=== PATIENT | male | born 1960 | race Caucasian/White ===

== ENCOUNTER 2018-06-25 03:24 | Emergency (ER) | payer OTHER ==
[2018-06-25 04:02] VITALS: TEMP 98.6; BMI 32.9
[2018-06-25] MEDS ORDERED: ONDANSETRON 4 MG/2 ML VIAL IVPUSH ONE (04:52)
[2018-06-25] MEDS ORDERED: MAGNESIUM SULF 50% (8.12 MEQ/2 ML-1 GM VIAL) IVPB ONE (05:04)
--- NOTE | 2018-06-25 05:04 | PDOC ---
Attending Attestation - Resident Resident Name: Bert Prescott - ED Attending Attestation I have performed the following: I have examined & evaluated the patient, The case was reviewed & discussed with the resident, I agree w/resident's findings & plan - HPI HPI: 06/25/18 05:03 Pt comes with diffuse abd pain and vomiting and he wants alcohol detox. 06/25/18 05:11 Pt states that he has been drinking x 17 years, - Physicial Exam PE: 06/25/18 05:03 Agree with physical exam 06/25/18 05:10 No flank pain; chest sounds clear. Abd diffuse tenderness and gassiness and rebound, but no guarding. - Medical Decision Making 06/25/18 05:04 Pt will have labs and saline and pepcid and ofirmev for pain. 06/25/18 06:00 Referring Physician: YAIMA BIGGS Patient Name: LATRICIA STOREY THIS IS A PRELIMINARY REPORT FROM [facility] [employer] [facility] DATE OF SERVICE: 2018-06-25 05:18:19 IMAGES: [id number] EXAM: ABDOMEN \T\ PELVIS CT W/O CONTR HISTORY: Abdominal pain COMPARISON: None. FINDINGS: Lung bases are clear. The visualized cardiac chambers are normal size and configuration. Normal unenhanced liver, gallbladder, pancreas, spleen, adrenal glands and kidneys. The stomach and abdominal small and large bowel are normal. There is no aortic aneurysm. There is no significant retroperitoneal lymphadenopathy. There is distal liquid stool and sigmoid diverticulosis without colonic wall thickening or diverticulitis. A diarrheal illness is considered.. The appendix is normal. The urinary bladder is normal. The prostate gland is mildly enlarged l. No pelvic free fluid is identified. There is no significant pelvic lymphadenopathy. IMPRESSION: Possible diarrheal illness without colonic wall thickening. Mild prostate enlargement 06/25/18 06:03 Pt has normal labs and he will be sent for alcohol detox.
[2018-06-25] MEDS ORDERED: FAMOTIDINE 20 MG/50 ML IVPB 20 MG/50 ML MG IVPB ONE ×2 (05:06→05:18)
[2018-06-25] MEDS ORDERED: ACETAMINOPHEN 1000 MG/100 ML VIAL (NON FORMULARY) IVPB ONE (05:06)
[2018-06-25] MEDS ORDERED: ONDANSETRON 4 MG/2 ML VIAL ONE (05:08)
[2018-06-25] MEDS ORDERED: ACETAMINOPHEN INJECTION 100 ML IVPB ONE (05:08)
[2018-06-25] MEDS ORDERED: MAGNESIUM 1GM/D5W - 2 GM/200 ML IVPB IVPB ONE (05:09)
[2018-06-25 05:26] LABS: BASO % 0.9 % (0-2.0); EOS % 0.5 % (0-4.5); HEMATOCRIT 46.5 % (35.4-49); HEMOGLOBIN 16.8 GM/dL (11.7-16.9); LYMPH % 22.6 % (8-40); MCH 35.7 pg (25.7-33.7); MCHC 36.1 g/dl (32.0-35.9); MEAN CELL VOLUME 99.1 fl (80-96); MONO % 7.4 % (3.8-10.2); NEUT % 68.6 % (42.8-82.8); PLATELET COUNT 215 K/MM3 (134-434); RBC 4.69 M/mm3 (4.00-5.60); WHITE BLOOD COUNT 5.3 K/mm3 (4.0-10.0)
--- NOTE | 2018-06-25 05:38 | PDOC ---
History of Present Illness - General Chief Complaint: Alcohol intoxication Stated Complaint: INTOX Time Seen by Provider: 06/25/18 04:21 History Source: Patient Exam Limitations: No Limitations - History of Present Illness Initial Comments: 06/25/18 05:11 57 yo male pmh of HTN, DM and hx of ETOH abuse presents to the ED for diffuse abdominal pain and states he drank to much. Pt states he has been drinking since 17 yo and drinks daily however, his mother in law this past Mon and has been drinking excessively. Admits to drinking 2L of rum per day since Mon, 4 episodes of NB/NB vomiting today, loose stools and diffuse abdominal pain made worse with eating and movement. Denies F/C, back pain, CP, SOB Past History - Past Medical History Allergies/Adverse Reactions: Allergies Allergy/AdvReac Type Severity Reaction Status Date / Time No Known Allergies Allergy Verified 06/25/18 04:02 Home Medications: Ambulatory Orders Citalopram Hydrobromide [Celexa] 20 mg PO DAILY #0 tablet 08/08/11 Asthma: No Cardiac Disorders: No COPD: No Diabetes: Yes GI Disorders: No Disorders: No HTN: Yes (Not on meds) Hypercholesterolemia: Yes Kidney Stones: No Seizures: No - Surgical History Abdominal Surgery: No Appendectomy: No Cardiac Surgery: No Cholecystectomy: No Lung Surgery: No Neurologic Surgery: No Orthopedic Surgery: No - Reproductive History Testicular Surgery: No - Immunization History Td Vaccination: (UNKNOWN) - Suicide/Smoking/Psychosocial Hx Smoking Status: Yes Smoking History: Never smoked Have you smoked in the past 12 months: No Number of Cigarettes Smoked Daily: 10 Information on smoking cessation initiated: No Hx Alcohol Use: No Drug/Substance Use Hx: No Substance Use Type: Alcohol Hx Substance Use Treatment: Yes Review of Systems - Review of Systems Constitutional: No: Chills, Fever HEENTM: No: Double Vision Respiratory: No: Shortness of Breath Cardiac (ROS): No: Chest Pain ABD/GI: Yes: Diarrhea, Nausea, Vomiting, Other (diffuse abdominal pain). No: Constipated, Rectal Bleeding : No: Burning, Dysuria Neurological: No: Headache, Numbness, Paresthesia *Physical Exam - Vital Signs Last Vital Signs Temp Pulse Resp BP Pulse Ox 98.6 F 98 H 16 157/88 100 06/25/18 03:56 06/25/18 03:56 06/25/18 03:56 06/25/18 03:56 06/25/18 03:56 - Physical Exam General Appearance: Yes: Nourished, Appropriately Dressed. No: Apparent Distress HEENT: positive: EOMI, COLEEN Respiratory/Chest: positive: Lungs Clear, Normal Breath Sounds. negative: Accessory Muscle Use, Crackles, Wheezing Cardiovascular: positive: Regular Rhythm, Regular Rate, S1, S2. negative: Edema , JVD, Murmur Vascular Pulses: Dorsalis-Pedis (R): 4+, Doralis-Pedis (L): 4+ Gastrointestinal/Abdominal: positive: Normal Bowel Sounds, Flat, Soft Rectal Exam: positive: heme negative stool, normal exam, normal rectal tone Musculoskeletal: positive: Normal Inspection Extremity: positive: Normal Capillary Refill, Normal Inspection Integumentary: positive: Normal Color, Dry, Warm Neurologic: positive: Fully Oriented, Alert, Normal Mood/Affect, Normal Response , Motor Strength 5/5 Moderate Sedation - Procedure Monitoring Vital Signs: Procedure Monitoring Vital Signs Temperature 98.6 F 06/25/18 03:56 Pulse Rate 98 H 06/25/18 03:56 Respiratory Rate 16 06/25/18 03:56 Blood Pressure 157/88 06/25/18 03:56 O2 Sat by Pulse Oximetry (%) 100 06/25/18 03:56 ED Treatment Course - LABORATORY CBC & Chemistry Diagram: 06/25/18 04:50 06/25/18 04:50 Medical Decision Making - Medical Decision Making 57 yo presents to ED intoxicated requesting transfer to Detox and also has diffuse abdominal pain. Vitals wnl Exam shows diffuse abdominal tenderness to light touch possible diarrheal illness without colonic thickening 06/25/18 06:40 Spoke with Suni at [facility] who agrees to have pt sent at 7 30 am Pt understands plan, AOX3, ambulating without difficulty and ready for DC to Detox *DC/Admit/Observation/Transfer Diagnosis at time of Disposition: Alcohol abuse - Discharge Dispostion Disposition: HOME Condition at time of disposition: Stable Decision to Admit order: No - Referrals - Patient Instructions Printed Discharge Instructions: DI for Alcohol Abuse Additional Instructions: Please make an appointment with your Family Doctor and see them in 48 hours. You are medically cleared to proceed to Detox as requested. Continue taking your home dosed medications as prescribed. Thank you - Post Discharge Activity
[2018-06-25] MEDS ORDERED: MAG HYDROX/AL HYDROX/SIMETH 30 ML UNIT-DOSE CUP PO ONE (06:03)
[2018-06-25 06:11] LABS: ALBUMIN 4.2 g/dl (3.4-5.0); ALK PHOS 68 U/L (45-117); ANION GAP 12 MMOL/L (8-16); BILIRUBIN,TOTAL 0.4 mg/dL (0.2-1); BLOOD UREA NITROGEN 12 mg/dL (7-18); CALCIUM 7.9 mg/dL (8.5-10.1); CHLORIDE 102 mmol/L (98-107); CO2 25 mmol/L (21-32); CREATININE 0.7 mg/dL (0.55-1.3); GLUCOSE,RANDOM 105 mg/dL (74-106); LIPASE 99 U/L (73-393); POTASSIUM 3.9 mmol/L (3.5-5.1); SGOT/AST 28 U/L (15-37); SGPT/ALT 33 U/L (13-61); SODIUM 138 mmol/L (136-145); TOT PROT 7.7 g/dl (6.4-8.2)
[2018-06-25] MEDS ORDERED: morphine CARPU-JECT 2 MG/1 ML DISP.SYRIN IVPUSH ONE (06:25)
[2018-06-25] MEDS ORDERED: MORPHINE SULFATE 2 MG/ML VIAL ONE (06:29)
[2018-06-25] MEDS ORDERED: MAG HYDROX/AL HYDROX/SIMETH 30 ML UNIT-DOSE CUP ONE (06:50)
[2018-06-25 07:42] VITALS: BP 160/87; PULSE 87
--- NOTE | 2018-06-25 10:28 | EKG ---
Test Reason : Blood Pressure : / mmHG Vent. Rate : 101 BPM Atrial Rate : 101 BPM P-R Int : 132 ms QRS Dur : 086 ms QT Int : 338 ms P-R-T Axes : 037 -76 048 degrees QTc Int : 438 ms SINUS TACHYCARDIA LEFT AXIS DEVIATION ABNORMAL ECG WHEN COMPARED WITH ECG OF 03-AUG-2011 13:59, QRS AXIS SHIFTED LEFT Confirmed by VIRGEN COSTA MD ([id number]) on 06/25/2018 10:27:42 AM Referred By: Confirmed By:VIRGEN COSTA MD
== END 2018-06-25 07:42 | disposition home or self-care (01) ==
LOC: JER 03:24
PROC: 3E033GC Introduction of Other Therapeutic Substance into Peripheral Vein, Percutaneous Approach (ICD-10-PCS; principal; 2018-06-25)
PROC: 3E033GC Introduction of Other Therapeutic Substance into Peripheral Vein, Percutaneous Approach (ICD-10-PCS; 2018-06-25)
PROC: 3E033GC Introduction of Other Therapeutic Substance into Peripheral Vein, Percutaneous Approach (ICD-10-PCS; 2018-06-25)
PROC: 3E033NZ Introduction of Analgesics, Hypnotics, Sedatives into Peripheral Vein, Percutaneous Approach (ICD-10-PCS; 2018-06-25)
PROC: 3E033NZ Introduction of Analgesics, Hypnotics, Sedatives into Peripheral Vein, Percutaneous Approach (ICD-10-PCS; 2018-06-25)
DX: F10.120 Alcohol abuse with intoxication, uncomplicated (principal); Y90.3 Blood alcohol level of 60-79 mg/100 ml
CPT/HCPCS: 36415; 71046-TC-FY; 74176-TC; 80053; 80307; 82272; 83690; 85025; 93005; 93010; 96365; 96375; 99283-25; J0131

== ENCOUNTER 2018-06-25 08:27 | Inpatient (IN) | payer OTHER ==
--- NOTE | 2018-06-25 09:04 | HP ---
CIWA Score Nausea/Vomitin Muscle Tremors: 3 Anxiety: 3 Agitation: 3 Paroxysmal Sweats: 1-Minimal Palms Moist Orientation: 0-Oriented Tacttile Disturbances: 1-Very Mild Itch/Numbness Auditory Disturbances: 1-Very Mild Visual Disturbances: 0-None Headache: 2-Mild CIWA-Ar Total Score: 17 - Admission Criteria OASAS Guidelines: Admission for Medically Managed Detox: Requires at least one of the followin. CIWA greater than 12 2. Seizures within the past 24 hours 3. Delirium tremens within the past 24 hours 4. Hallucinations within the past 24 hours 5. Acute intervention needed for co occurring medical disorder 6. Acute intervention needed for co occurring psychiatric disorder 7. Severe withdrawal that cannot be handled at a lower level of care (continued vomiting, continued diarrhea, abnormal vital signs) requiring intravenous medication and/or fluids 8. Patient presents the following: CIWA greater than 12 Admission Criteria Met: Admission criteria met Admission ROS [facility] - HPI Chief Complaint: i need help to stop drinking alcohol Allergies/Adverse Reactions: Allergies Allergy/AdvReac Type Severity Reaction Status Date / Time No Known Allergies Allergy Verified 06/25/18 04:02 History of Present Illness: this 57 years old male with alcohol dependence,seeking detox,withdrawal symptom, seen in er last night by ambulance with severe abdominal pain, medically clear to come to [facility] last detox in 2013 at [facility] type 2 dm on metformin 500 mgs po bid hypertension no medication had previous admissions in the past plan for out patient program seen in er at [facility] receiving Morphine last night Exam Limitations: No Limitations - Ebola screening Have you traveled outside of the country in the last 21 days: No - Review of Systems Constitutional: Loss of Appetite, Night Sweats, Changes in sleep, Weakness EENT: reports: Nose Congestion Respiratory: reports: No Symptoms reported Cardiac: reports: No Symptoms Reported GI: reports: Nausea, Vomiting, Abdominal cramping : reports: No Symptoms Reported Musculoskeletal: reports: Back Pain, Muscle Pain Integumentary: reports: Dryness Neuro: reports: Headache, Tremors Endocrine: reports: No Symptoms Reported Hematology: reports: No Symptoms Reported Psychiatric: reports: No Sypmtoms Reported, Judgement Intact, Mood/Affect Appropiate, Orientated x3, other Other Systems: Reviewed and Negative Patient History - Patient Medical History Hx Anemia: No Hx Asthma: No Hx Chronic Obstructive Pulmonary Disease (COPD): No Hx Cancer: No Hx Cardiac Disorders: No Hx Hypertension: Yes (Not on meds) Hx Hypercholesterolemia: Yes Hx Pacemaker: No HX Cerebrovascular Accident: No Hx Seizures: No Hx Dementia: No Hx Diabetes: Yes (tpe 2 dm on metformin 500 mgs po bid) Hx Gastrointestinal Disorders: No Hx Liver Disease: No Hx Genitourinary Disorders: No Hx Sexually Transmitted Disorders: No Hx Renal Disease (ESRD): No Hx Thyroid Disease: No Hx Human Immunodeficiency Virus (HIV): No (2019 negative) Hx Hepatitis C: No Hx Depression: Yes (no med) Hx Suicide Attempt: No Hx Bipolar Disorder: No Hx Schizophrenia: No Other Medical History: no suicidal,no homicidal - Patient Surgical History Past Surgical History: No Hx Neurologic Surgery: No Hx Cataract Extraction: No Hx Cardiac Surgery: No Hx Lung Surgery: No Hx Breast Surgery: No Hx Breast Biopsy: No Hx Abdominal Surgery: No Hx Appendectomy: No Hx Cholecystectomy: No Hx Genitourinary Surgery: No Hx Section: No Hx Orthopedic Surgery: No Anesthesia Reaction: No - PPD History Previous Implant?: Yes Documented Results: Negative w/o proof Date: 08/05/11 PPD to be Administered?: Yes - Smoking Cessation Smoking history: Never smoked Have you smoked in the past 12 months: No Aproximately how many cigarettes per day: 10 Hx Chewing Tobacco Use: No Initiated information on smoking cessation: Yes 'Breaking Loose' booklet given: 06/25/18 - Substance & Tx. History Hx Alcohol Use: Yes Hx Substance Use: No Substance Use Type: Alcohol Hx Substance Use Treatment: Yes (jailyn oglesby 2013) - Substances Abused Alcohol Route: Oral Frequency: Daily (2) Amount used: 2pints of rum/10 of 24 ozs of beer Age of first use: 30 Date of Last Use: 06/24/18 Family Disease History - Family Disease History Family Disease History: Diabetes: Mother (), Heart Disease: Father ( alcohol,), Other: Brother (alcohol,cirrhosis,) Admission Physical Exam S - Vital Signs Vital Signs: Vital Signs Temperature 98 F 06/25/18 09:08 Pulse Rate 87 06/25/18 09:08 Respiratory Rate 20 06/25/18 09:08 Blood Pressure 152/89 06/25/18 09:08 O2 Sat by Pulse Oximetry (%) - Physical General Appearance: Yes: Moderate Distress, Tremorous, Irritable, Sweating, Anxious HEENTM: Yes: Normal ENT Inspection, COLEEN, Pharynx Normal Respiratory: Yes: Lungs Clear, Normal Breath Sounds, No Respiratory Distress Neck: Yes: Within Normal Limits, Supple, Trachea in good position Breast: Yes: Within Normal Limits Cardiology: Yes: Within Normal Limits, Regular Rhythm, Regular Rate, S1, S2 Abdominal: Yes: Within Normal Limits, Normal Bowel Sounds, Non Tender, Flat, Soft Genitourinary: Yes: Within Normal Limits Back: Yes: Muscle Spasm Musculoskeletal: Yes: Back pain, Muscle Pain Extremities: Yes: Tremors Neurological: Yes: Within Normal Limits, assurance analyst II-XII NML intact, Fully Oriented, Alert, Motor Strength 5/5 Integumentary: Yes: Dry Lymphatic: Yes: Within Normal Limits - Diagnostic (1) Alcohol dependence with uncomplicated withdrawal Current Visit: Yes Status: Acute (2) Syncope Current Visit: Yes Status: Acute (3) Hypertension Current Visit: Yes Status: Acute (4) Nicotine dependence Current Visit: Yes Status: Acute (5) DM2 (diabetes mellitus, type 2) Current Visit: Yes Status: Acute Cleared for Admission S - Detox or Rehab [facility] Level of Care: Medically Managed Detox Regimen/Protocol: Librium [facility] Breath Alcohol Content Breath Alcohol Content: 0.012 Inpatient Rehab Admission - Rehab Decision to Admit Inpatient rehab admission?: No
[2018-06-25 09:10] VITALS: BMI 30.8
[2018-06-25] MEDS ORDERED: guaiFENesin/D-METHORPHAN HB 10 ML UNIT-DOSE CUPS PO PRN (09:17)
[2018-06-25] MEDS ORDERED: MAGNESIUM CITRATE 300 ML BOTTLE PO PRN (09:17)
[2018-06-25] MEDS ORDERED: MAG HYDROX/AL HYDROX/SIMETH 30 ML UNIT-DOSE CUP PO PRN (09:17)
[2018-06-25] MEDS ORDERED: MENTHOL/PHENOL 1 EACH UD MM PRN (09:17)
[2018-06-25] MEDS ORDERED: MAGNESIUM HYDROX 2400MG/30ML ORAL SUSPENSION 30 ML CUP PO PRN (09:17)
[2018-06-25] MEDS ORDERED: P-EPHED 60MG/TRIPROLIDI 2.5MG TABLET PO PRN (09:17)
[2018-06-25] MEDS ORDERED: IBUPROFEN 400 MG TABLET (FP) PO PRN (09:17)
--- NOTE | 2018-06-25 10:39 | EKG ---
Test Reason : Blood Pressure : / mmHG Vent. Rate : 078 BPM Atrial Rate : 078 BPM P-R Int : 144 ms QRS Dur : 104 ms QT Int : 394 ms P-R-T Axes : 029 072 055 degrees QTc Int : 449 ms NORMAL SINUS RHYTHM NONSPECIFIC T WAVE ABNORMALITY WHEN COMPARED WITH ECG OF 25-JUN-2018 05:07, T WAVE VARIATION Confirmed by JULISSA BRAXTON, VIRGEN ([id number]) on 06/25/2018 10:38:40 AM Referred By: María Elena Fortune Confirmed By:VIRGEN COSTA MD
[2018-06-25] MEDS: ACETAMINOPHEN 325 MG TABLET (FP) PO PRN (10:41)
[2018-06-25] MEDS: chlordiazePOXIDE HCL 25 MG CAPSULE PO SCH ×3 (10:42→22:05)
[2018-06-25] MEDS: PRENATAL VITAMINS W/ FOLIC ACID TABLET (FP) PO SCH (10:43)
[2018-06-25] MEDS: NICOTINE 21 MG/24 HOURS TOPICAL PATCH TD SCH (10:44)
[2018-06-25] MEDS: metFORMIN HCL 500 MG TABLET (FP) PO SCH ×2 (12:14→17:59)
[2018-06-25] MEDS: chlordiazePOXIDE HCL 25 MG CAPSULE PO PRN (12:47)
[2018-06-25] MEDS ORDERED: cloNIDine HCL 0.1 MG TABLET PO PRN (12:54)
--- NOTE | 2018-06-25 13:50 | PN ---
[facility] Progress Note Note: bp elevation patient denies history of hypertension cardiac S1S2 pulmonary clear bilaterally abdomen soft none tender begin lisinopril 10 mg po bid clonidin 0.1 mg po q6h prn return from ER
[2018-06-25] MEDS: LISINOPRIL 10 MG TABLET (FP) PO SCH ×2 (14:19→22:05)
[2018-06-25] MEDS: RANITIDINE HCL 150 MG TABLET (FP) PO SCH ×2 (14:19→22:05)
--- NOTE | 2018-06-25 17:35 | PN ---
[facility] Progress Note Note: Vital Signs Temperature 97.9 F 06/25/18 13:47 Pulse Rate 87 06/25/18 13:47 Respiratory Rate 18 06/25/18 13:47 Blood Pressure 179/88 H 06/25/18 13:47 O2 Sat by Pulse Oximetry (%) Laboratory Last Values POC Glucometer 168 UNITS (80-120) 06/25/18 16:29 Patient evaluated after verbalizing for to counselor Zoie suicidal ideation. Patient is a 57 yo male , Bangladeshi speaking only, who is currently on the unit for alcohol detox. Patient calm and cooperative. Patient expressed feeling sad and depressed since the of his mother in law , a "few days ago" Patient denies suicidal / homicidal ideation at this time. Reports he has had suicidal thoughts of jumping out the window in the past but currently does not have any at this time, just increase sadness. Patient in no s/s of distress. + tremors on both upper extremities + diaphoresis Ambulatory independently continue alcohol detox continue clonidine 0.1 mg q6h added: vistaril PRN for agitation and baclofen 10 mg BID for tremors psych consult ordered continue to monitor
[2018-06-25] MEDS: LOPERAMIDE HCL 2 MG CAPSULE PO PRN (18:06)
[2018-06-25] MEDS ORDERED: ONDANSETRON *ODT* 4 MG TABLET SL ONE (19:15)
[2018-06-25] MEDS: BACLOFEN 10 MG TABLET (FP) PO SCH (22:05)
[2018-06-25] MEDS: THIAMINE HCL 100 MG TABLET (FP) PO SCH (22:05)
[2018-06-26] MEDS: chlordiazePOXIDE HCL 25 MG CAPSULE PO SCH ×4 (05:35→22:24)
[2018-06-26] MEDS: metFORMIN HCL 500 MG TABLET (FP) PO SCH ×2 (07:01→17:13)
[2018-06-26] MEDS: PRENATAL VITAMINS W/ FOLIC ACID TABLET (FP) PO SCH (10:08)
[2018-06-26] MEDS: NICOTINE 21 MG/24 HOURS TOPICAL PATCH TD SCH (10:08)
[2018-06-26] MEDS: LISINOPRIL 10 MG TABLET (FP) PO SCH ×2 (10:09→22:24)
[2018-06-26] MEDS: hydrOXYzine PAMOATE 50 MG CAPSULE (FP) PO PRN ×2 (10:09→22:23)
[2018-06-26] MEDS: RANITIDINE HCL 150 MG TABLET (FP) PO SCH ×2 (10:09→22:24)
[2018-06-26] MEDS: BACLOFEN 10 MG TABLET (FP) PO SCH ×2 (10:09→22:24)
[2018-06-26 11:26] LABS: ALBUMIN 3.5 g/dl (3.4-5.0); ALK PHOS 65 U/L (45-117); ANION GAP 7 MMOL/L (8-16); BLOOD UREA NITROGEN 8 mg/dL (7-18); CALCIUM 8.2 mg/dL (8.5-10.1); CHLORIDE 102 mmol/L (98-107); CO2 30 mmol/L (21-32); CREATININE 0.6 mg/dL (0.55-1.3); GLUCOSE,RANDOM 128 mg/dL (74-106); POTASSIUM 4.1 mmol/L (3.5-5.1); SGOT/AST 21 U/L (15-37); SGPT/ALT 30 U/L (13-61); SODIUM 139 mmol/L (136-145); TOT PROT 6.9 g/dl (6.4-8.2)
--- NOTE | 2018-06-26 11:34 | PN ---
S CIWA - CIWA Score Nausea/Vomitin-Mild Nausea/No Vomiting Muscle Tremors: 3 Anxiety: 3 Agitation: 3 Paroxysmal Sweats: 1-Minimal Palms Moist Orientation: 1-Uncertain about Date Tacttile Disturbances: 0-None Auditory Disturbances: 0-None Visual Disturbances: 0-None Headache: 1-Very Mild CIWA-Ar Total Score: 13 [facility] Progress Note (SOAP) Subjective: tremor headaches sweating anxiety denies suicidal ideation Objective: 06/26/18 11:35 Vital Signs Temperature 96.1 F L 06/26/18 09:39 Pulse Rate 84 06/26/18 09:39 Respiratory Rate 18 06/26/18 09:39 Blood Pressure 126/81 06/26/18 09:39 O2 Sat by Pulse Oximetry (%) Laboratory Last Values Sodium 139 mmol/L (136-145) 06/26/18 08:04 Potassium 4.1 mmol/L (3.5-5.1) 06/26/18 08:04 Chloride 102 mmol/L (98-107) 06/26/18 08:04 Carbon Dioxide 30 mmol/L (21-32) 06/26/18 08:04 Anion Gap 7 MMOL/L (8-16) L 06/26/18 08:04 BUN 8 mg/dL (7-18) 06/26/18 08:04 Creatinine 0.6 mg/dL (0.55-1.3) 06/26/18 08:04 Creat Clearance w eGFR > 60 (>60) 06/26/18 08:04 POC Glucometer 137 UNITS (80-120) 06/26/18 05:34 Random Glucose 128 mg/dL (74-106) H 06/26/18 08:04 Calcium 8.2 mg/dL (8.5-10.1) L 06/26/18 08:04 Total Bilirubin 1.0 mg/dL (0.2-1) 06/26/18 08:04 AST 21 U/L (15-37) 06/26/18 08:04 ALT 30 U/L (13-61) 06/26/18 08:04 Alkaline Phosphatase 65 U/L (45-117) 06/26/18 08:04 Total Protein 6.9 g/dl (6.4-8.2) 06/26/18 08:04 Albumin 3.5 g/dl (3.4-5.0) 06/26/18 08:04 lab noted Assessment: 06/26/18 11:35 withdrawal sx Plan: continue detox
[2018-06-26 11:53] LABS: HEMATOCRIT 44.7 % (35.4-49); HEMOGLOBIN 16.1 GM/dL (11.7-16.9); MCH 36.2 pg (25.7-33.7); MCHC 36.1 g/dl (32.0-35.9); MEAN CELL VOLUME 100.2 fl (80-96); MEAN PLT VOLUME 8.8 fl (7.5-11.1); PLATELET COUNT 157 K/MM3 (134-434); RBC 4.46 M/mm3 (4.00-5.60); RDW 13.9 % (11.9-15.9)
--- NOTE | 2018-06-26 17:26 | CONSULT ---
[facility] Psychiatric Consult - Data Date of interview: 06/26/18 Admission source: [facility] Identifying data: Readmission to [facility] for this 57 y/o [place]-born male self-referred for detoxifiation (alcohol). 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 Substance Abuse History: Discussed with the patient. Mr Mckenna reports consuming up to 2 pints of vodka + 7-10 x 24 oz of beer daily for past 27 years. Smoking history: patient admits to smoking 1/2 pack of cigarettes daily. Have you smoked in the past 12 months: yes. Aproximately how many cigarettes per day: 10. Hx Chewing Tobacco Use: No. Initiated information on smoking cessation: Yes. 'Breaking Loose' booklet given: 06/25/18. - Substance & Tx. History. Hx Alcohol Use: Yes. Hx Substance Use: No. Substance Use Type: Alcohol. Hx Substance Use Treatment: Yes (jailyn oglesby 2013). - Substances Abused. Alcohol. Route: Oral. Frequency: Daily (2). Amount used: 2pints of rum/10 of 24 ozs of beer. Age of first use: 30. Date of Last Use: 06/24/18 Medical History: Remarkable for diabetes mellitus, hypertension and dyslipidemia. Psychiatric History: Patient reports a history of three psychiatric hospitalizations ([facility]). As recently as March 2018. First psychiatric breakdown is reported as having occurred about seven years ago (depression, anhedonia, feelings of hopelessness, suicidal ruminations and suicide attempt via hanging).Diagnosed with MDD and alcohol dependence. Mr Mckenna states that he sees a psychiatrist, on a monthly basis, at the [facility] mental health clinic in [place], [place]. He does not recall the name of his psychotropic medication but he confirms that this is " something for depression ". Records indicate that this patient has been prescribed citalopram in the past (as early as 2011). Adherence to psychiatric OPD care remains questionable. Patient admits to a history of multiple suicide attempts via various means (hanging). Most recent was in March 2018 ( attempted to hang self). Physical/Sexual Abuse/Trauma History: Current stressors : recent of mother -in law, separation from , unemployment, financial difficulties, lack of vocationl skills, loneliness and addiction to alcohol. Additional Comment: No toxicology available. Mental Status Exam - Mental Status Exam Alert and Oriented to: Time, Place, Person Cognitive Function: Good Patient Appearance: Well Groomed (short stature, neatly groomed) Mood: Nervous, Withdrawn, Hopeful Affect: Mood Congruent, Constricted Patient Behavior: Fatigued, Talkative, Appropriate (well-mannered), Cooperative Speech Pattern: Clear, Appropriate (liberian speaking but shows good understanding of the kinyarwanda language) Voice Loudness: Normal Thought Process: Intact, Goal Oriented Thought Disorder: Not Present Hallucinations: Denies Suicidal Ideation: Denies Homicidal Ideation: Denies Insight/Judgement: Fair Sleep: Well (since admission to [address] [place] [address]) Appetite: Good Muscle strength/Tone: Normal Gait/Station: Normal Psychiatric Findings - Problem List ([place] 1, 2,3) (1) Alcohol dependence with uncomplicated withdrawal Current Visit: Yes Status: Acute (2) Nicotine dependence Current Visit: Yes Status: Chronic (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 (5) Insomnia Current Visit: Yes Status: Chronic Comment: Improved since admission to [facility]. - Initial Treatment Plan Initial Treatment Plan: Will contact [facility] for records. Psychoeducation. Support. Proceed with detoxification protocol. Observe without additional psychotropic drugs. Will hold SSRI medication at this time. Medication reconciliation : not informative about psychotropic medications. No information about pharmacy used by the patient. AA meetings. Will follow.
[2018-06-26] MEDS: THIAMINE HCL 100 MG TABLET (FP) PO SCH (22:23)
[2018-06-26] MEDS: MELATONIN 5 MG TABLETS PO PRN (22:24)
[2018-06-27] MEDS: chlordiazePOXIDE HCL 25 MG CAPSULE PO SCH (05:43)
[2018-06-27] MEDS: metFORMIN HCL 500 MG TABLET (FP) PO SCH ×2 (06:47→17:40)
[2018-06-27] MEDS: chlordiazePOXIDE HCL 25 MG CAPSULE PO PRN (10:23)
[2018-06-27] MEDS: RANITIDINE HCL 150 MG TABLET (FP) PO SCH ×2 (10:23→22:28)
[2018-06-27] MEDS: BACLOFEN 10 MG TABLET (FP) PO SCH ×2 (10:23→22:28)
[2018-06-27] MEDS: NICOTINE 21 MG/24 HOURS TOPICAL PATCH TD SCH (10:23)
[2018-06-27] MEDS: PRENATAL VITAMINS W/ FOLIC ACID TABLET (FP) PO SCH (10:23)
[2018-06-27] MEDS: LISINOPRIL 10 MG TABLET (FP) PO SCH (10:24)
[2018-06-27] MEDS: chlordiazePOXIDE 5 MG CAPSULE PO SCH ×3 (11:34→22:28)
[2018-06-27] MEDS: ACETAMINOPHEN 325 MG TABLET (FP) PO PRN (11:35)
--- NOTE | 2018-06-27 12:30 | PN ---
S CIWA - CIWA Score Nausea/Vomitin-No Nausea/No Vomiting Muscle Tremors: 2 Anxiety: 1-Mildly Anxious Agitation: 3 Paroxysmal Sweats: 1-Minimal Palms Moist Orientation: 1-Uncertain about Date Tacttile Disturbances: 0-None Auditory Disturbances: 0-None Visual Disturbances: 0-None Headache: 1-Very Mild CIWA-Ar Total Score: 9 [facility] Progress Note (SOAP) Subjective: tremor sweating tolerate food and fluid better sleep better at night Objective: 06/27/18 12:29 Vital Signs Temperature 96.6 F L 06/27/18 09:03 Pulse Rate 61 06/27/18 09:03 Respiratory Rate 16 06/27/18 09:03 Blood Pressure 105/63 06/27/18 09:03 O2 Sat by Pulse Oximetry (%) Laboratory Last Values WBC 4.0 K/mm3 (4.0-10.0) 06/26/18 08:00 RBC 4.46 M/mm3 (4.00-5.60) 06/26/18 08:00 Hgb 16.1 GM/dL (11.7-16.9) 06/26/18 08:00 Hct 44.7 % (35.4-49) 06/26/18 08:00 MCV 100.2 fl (80-96) H 06/26/18 08:00 MCH 36.2 pg (25.7-33.7) H 06/26/18 08:00 MCHC 36.1 g/dl (32.0-35.9) H 06/26/18 08:00 RDW 13.9 % (11.9-15.9) 06/26/18 08:00 Plt Count 157 K/MM3 (134-434) D 06/26/18 08:00 MPV 8.8 fl (7.5-11.1) 06/26/18 08:00 Sodium 139 mmol/L (136-145) 06/26/18 08:04 Potassium 4.1 mmol/L (3.5-5.1) 06/26/18 08:04 Chloride 102 mmol/L (98-107) 06/26/18 08:04 Carbon Dioxide 30 mmol/L (21-32) 06/26/18 08:04 Anion Gap 7 MMOL/L (8-16) L 06/26/18 08:04 BUN 8 mg/dL (7-18) 06/26/18 08:04 Creatinine 0.6 mg/dL (0.55-1.3) 06/26/18 08:04 Creat Clearance w eGFR > 60 (>60) 06/26/18 08:04 POC Glucometer 120 UNITS (80-120) 06/27/18 05:42 Random Glucose 128 mg/dL (74-106) H 06/26/18 08:04 Calcium 8.2 mg/dL (8.5-10.1) L 06/26/18 08:04 Total Bilirubin 1.0 mg/dL (0.2-1) 06/26/18 08:04 AST 21 U/L (15-37) 06/26/18 08:04 ALT 30 U/L (13-61) 06/26/18 08:04 Alkaline Phosphatase 65 U/L (45-117) 06/26/18 08:04 Total Protein 6.9 g/dl (6.4-8.2) 06/26/18 08:04 Albumin 3.5 g/dl (3.4-5.0) 06/26/18 08:04 RPR Titer Nonreactive (NONREACTIVE) 06/26/18 08:00 lab noted bp under controlled at the present time reduce lisinopril to daily discontinue clonodine Assessment: 06/27/18 12:30 withdrawal sx Plan: continue detox
[2018-06-27] MEDS: LOPERAMIDE HCL 2 MG CAPSULE PO PRN (17:48)
[2018-06-27] MEDS: THIAMINE HCL 100 MG TABLET (FP) PO SCH (22:28)
[2018-06-27] MEDS: MELATONIN 5 MG TABLETS PO PRN (22:28)
[2018-06-28] MEDS: chlordiazePOXIDE 5 MG CAPSULE PO SCH (06:17)
[2018-06-28] MEDS: metFORMIN HCL 500 MG TABLET (FP) PO SCH ×2 (07:40→17:59)
[2018-06-28] MEDS: PRENATAL VITAMINS W/ FOLIC ACID TABLET (FP) PO SCH (10:14)
[2018-06-28] MEDS: NICOTINE 21 MG/24 HOURS TOPICAL PATCH TD SCH (10:14)
[2018-06-28] MEDS: RANITIDINE HCL 150 MG TABLET (FP) PO SCH ×2 (10:14→22:11)
[2018-06-28] MEDS: BACLOFEN 10 MG TABLET (FP) PO SCH ×2 (10:14→22:10)
[2018-06-28] MEDS: LISINOPRIL 10 MG TABLET (FP) PO SCH (10:14)
[2018-06-28] MEDS: chlordiazePOXIDE HCL 10 MG CAPSULE PO SCH ×3 (10:14→22:10)
--- NOTE | 2018-06-28 13:24 | PN ---
S CIWA - CIWA Score Nausea/Vomitin-No Nausea/No Vomiting Muscle Tremors: 1-None Visible, but [place] Anxiety: 0-No Anxiety, at Ease Agitation: 1-Slight > Activity Paroxysmal Sweats: No Perspiration Orientation: 0-Oriented Tacttile Disturbances: 0-None Auditory Disturbances: 0-None Visual Disturbances: 0-None Headache: 0-None Present CIWA-Ar Total Score: 2 B[facility] Progress Note (SOAP) Subjective: feeling better mild tremor less sweating social with peers in day room more energy Objective: 06/28/18 13:22 Vital Signs Temperature 97.6 F 06/28/18 09:48 Pulse Rate 72 06/28/18 09:48 Respiratory Rate 20 06/28/18 09:48 Blood Pressure 145/78 06/28/18 09:48 O2 Sat by Pulse Oximetry (%) Laboratory Last Values WBC 4.0 K/mm3 (4.0-10.0) 06/26/18 08:00 RBC 4.46 M/mm3 (4.00-5.60) 06/26/18 08:00 Hgb 16.1 GM/dL (11.7-16.9) 06/26/18 08:00 Hct 44.7 % (35.4-49) 06/26/18 08:00 MCV 100.2 fl (80-96) H 06/26/18 08:00 MCH 36.2 pg (25.7-33.7) H 06/26/18 08:00 MCHC 36.1 g/dl (32.0-35.9) H 06/26/18 08:00 RDW 13.9 % (11.9-15.9) 06/26/18 08:00 Plt Count 157 K/MM3 (134-434) D 06/26/18 08:00 MPV 8.8 fl (7.5-11.1) 06/26/18 08:00 Sodium 139 mmol/L (136-145) 06/26/18 08:04 Potassium 4.1 mmol/L (3.5-5.1) 06/26/18 08:04 Chloride 102 mmol/L (98-107) 06/26/18 08:04 Carbon Dioxide 30 mmol/L (21-32) 06/26/18 08:04 Anion Gap 7 MMOL/L (8-16) L 06/26/18 08:04 BUN 8 mg/dL (7-18) 06/26/18 08:04 Creatinine 0.6 mg/dL (0.55-1.3) 06/26/18 08:04 Creat Clearance w eGFR > 60 (>60) 06/26/18 08:04 POC Glucometer 121 UNITS (80-120) 06/27/18 16:28 Random Glucose 128 mg/dL (74-106) H 06/26/18 08:04 Calcium 8.2 mg/dL (8.5-10.1) L 06/26/18 08:04 Total Bilirubin 1.0 mg/dL (0.2-1) 06/26/18 08:04 AST 21 U/L (15-37) 06/26/18 08:04 ALT 30 U/L (13-61) 06/26/18 08:04 Alkaline Phosphatase 65 U/L (45-117) 06/26/18 08:04 Total Protein 6.9 g/dl (6.4-8.2) 06/26/18 08:04 Albumin 3.5 g/dl (3.4-5.0) 06/26/18 08:04 RPR Titer Nonreactive (NONREACTIVE) 06/26/18 08:00 lab noted encourage to keep a list of medication in wallet Assessment: 06/28/18 13:22 mild withdrawal sx encourage bring in bottles of medication to aftercare appointment encourage brining in medication list to aftercare appointment encourage update medication list when change of medication Plan: continue detox discuss medication adherence
--- NOTE | 2018-06-28 17:46 | PN ---
[facility] Progress Note Note: Psychiatric nurse practitioner note: Patient is a 57 year old male with a history of alcohol dependence and MDD. Patient reports feelings of hopeless, amotivation, and [place] due to current situation of homelessness, unemployment, and of mother in law. Patient was recently admitted to [facility] in March of 2017 after contemplating suicide by hanging himself. He reports being discharged on an unknown psychotropic agent. He last accepted medication two months ago. After abruptly discontinuing medication two months ago he experienced visual hallucinations, tremors, feeling faint, and becoming diaphoretic. He denies current outpatient psychiatric care. He denies current thoughts to hurt himself or others. In addition patient is not interested in restarting psychotropic medications after experiencing discontinuation symptoms from abruptly discontinuing medication two months ago. Despite reporting symptoms of depression, Mr. Bala Elam reports feeling much better today than he did yesterday. Patient's protective factors are his 4 children and 3 grandchildren. Patient reports motivation to remain abstinent from alcohol use and to find employment after discharge. In addition he wants to return to [place] and visit [place] so that he can see his children. Face to Face: 30 min
[2018-06-28] MEDS: LOPERAMIDE HCL 2 MG CAPSULE PO PRN (18:10)
[2018-06-28] MEDS: THIAMINE HCL 100 MG TABLET (FP) PO SCH (22:10)
[2018-06-28] MEDS: MELATONIN 5 MG TABLETS PO PRN (22:11)
[2018-06-29] MEDS: hydrOXYzine PAMOATE 50 MG CAPSULE (FP) PO PRN (01:45)
[2018-06-29] MEDS: chlordiazePOXIDE HCL 10 MG CAPSULE PO SCH (05:38)
[2018-06-29] MEDS: metFORMIN HCL 500 MG TABLET (FP) PO SCH (06:57)
[2018-06-29 09:40] VITALS: BP 131/78; PULSE 80; TEMP 97.2
[2018-06-29] MEDS: LISINOPRIL 10 MG TABLET (FP) PO SCH (12:14)
[2018-06-29] MEDS: BACLOFEN 10 MG TABLET (FP) PO SCH (12:14)
[2018-06-29] MEDS: NICOTINE 21 MG/24 HOURS TOPICAL PATCH TD SCH (12:15)
[2018-06-29] MEDS: RANITIDINE HCL 150 MG TABLET (FP) PO SCH (12:15)
[2018-06-29] MEDS: PRENATAL VITAMINS W/ FOLIC ACID TABLET (FP) PO SCH (12:15)
--- NOTE | 2018-06-29 19:42 | DS ---
[facility] Detox Discharge Summary Admission Date: 06/25/18 Discharge Date: 06/29/18 - History Present History: Alcohol Dependence Additional Comments: NO BEDS ARE AVAILABLE AT [facility] ([place], [place]) AT THIS TIME. PATIENT WILL RETURN TO HIS PREVIOUS ALF ([place], [place] ) FOR TIME BEING, THEN WILL APPLY FOR REHAB BED ADMISSION ON HIS OWN AT A LATER DATE. PATIENT DECLINED OFFER OF MEDICATION PRESCRIPTION FOR HOME MEDICATION AT TIME OF DISCHARGE FROM DETOX, NOTING THAT HE PREFERS TO FOLLOW-UP WITH HIS OWN [facility] FOR MEDICATION PRESCRIPTIONS. PATIENT WAS DISCHARGED FROM DETOX UNIT IN STABLE MEDICAL CONDITION. Pertinent Past History: Nicotine Dependence, Type II DM, HTN, Hypercholesterolemia, History of Depression, History Of Syncope, History of Insomnia. - Physical Exam Results Vital Signs: Vital Signs Temperature 97.2 F L 06/29/18 09:39 Pulse Rate 80 06/29/18 09:39 Respiratory Rate 18 06/29/18 09:39 Blood Pressure 131/78 06/29/18 09:39 O2 Sat by Pulse Oximetry (%) Pertinent Admission Physical Exam Findings: WITHDRAWAL SYMPTOMS. Laboratory Tests 06/25/18 06/25/18 06/26/18 09:42 16:29 05:34 WBC RBC Hgb Hct MCV MCH MCHC RDW Plt Count MPV Sodium Potassium Chloride Carbon Dioxide Anion Gap BUN Creatinine Creat Clearance w eGFR POC Glucometer 115 168 137 Random Glucose Calcium Total Bilirubin AST ALT Alkaline Phosphatase Total Protein Albumin RPR Titer 06/26/18 06/26/18 06/26/18 08:00 08:00 08:04 WBC 4.0 RBC 4.46 Hgb 16.1 Hct 44.7 MCV 100.2 H MCH 36.2 H MCHC 36.1 H RDW 13.9 Plt Count 157 D MPV 8.8 Sodium 139 Potassium 4.1 Chloride 102 Carbon Dioxide 30 Anion Gap 7 L BUN 8 Creatinine 0.6 Creat Clearance w eGFR > 60 POC Glucometer Random Glucose 128 H Calcium 8.2 L Total Bilirubin 1.0 AST 21 ALT 30 Alkaline Phosphatase 65 Total Protein 6.9 Albumin 3.5 RPR Titer Nonreactive 06/26/18 06/27/18 06/27/18 16:31 05:42 16:28 WBC RBC Hgb Hct MCV MCH MCHC RDW Plt Count MPV Sodium Potassium Chloride Carbon Dioxide Anion Gap BUN Creatinine Creat Clearance w eGFR POC Glucometer 117 120 121 Random Glucose Calcium Total Bilirubin AST ALT Alkaline Phosphatase Total Protein Albumin RPR Titer 06/28/18 06/29/18 16:56 05:37 WBC RBC Hgb Hct MCV MCH MCHC RDW Plt Count MPV Sodium Potassium Chloride Carbon Dioxide Anion Gap BUN Creatinine Creat Clearance w eGFR POC Glucometer 133 157 Random Glucose Calcium Total Bilirubin AST ALT Alkaline Phosphatase Total Protein Albumin RPR Titer LABS NOTED. - Treatment Hospital Course: Detox Protocol Followed, Detoxed Safely, Responded well, Discharged Condition Good, Rehab Referral Accepted Patient has Accepted a Rehab Referral to: [facility] ([place], [place] PATIENT GUERLINE APPLY FOR BED AT A LATER DATE. - Medication Discharge Medications: Ambulatory Orders Lisinopril [Prinivil] 10 mg PO BID 06/25/18 Lisinopril [Prinivil] 10 mg PO DAILY #14 tablet 06/28/18 Metformin HCl [Glucophage] 500 mg PO BID #30 tablet 06/28/18 - Diagnosis (1) Alcohol abuse Status: Acute (2) Alcohol dependence with uncomplicated withdrawal Status: Acute (3) DM2 (diabetes mellitus, type 2) Status: Acute Qualifiers: Diabetes mellitus fpc insulin use: without fpc use Diabetes mellitus complication status: with unspecified complications Qualified Code(s) : E11.8 - Type 2 diabetes mellitus with unspecified complications (4) Hypertension Status: Chronic Qualifiers: Hypertension type: unspecified Qualified Code(s): I10 - Essential (primary ) hypertension (5) Syncope Status: Acute Qualifiers: Syncope type: unspecified Qualified Code(s): R55 - Syncope and collapse (6) Alcohol-induced mood disorder Status: Chronic (7) Depressive disorder Status: Chronic (8) Insomnia Status: Chronic Qualifiers: Insomnia type: unspecified Qualified Code(s): G47.00 - Insomnia, unspecified (9) Nicotine dependence Status: Chronic Qualifiers: Nicotine product type: cigarettes Substance use status: uncomplicated Qualified Code(s): F17.210 - Nicotine dependence, cigarettes, uncomplicated - AMA Did Patient Leave Against Medical Advice: No
== END 2018-06-29 13:20 | disposition home or self-care (01) | DRG 775 ==
LOC: YASAS 08:27 → Y3N 09:31
PROVIDERS: ADMIT Surgery; ATTEND Surgery
PROC: HZ2ZZZZ Detoxification Services for Substance Abuse Treatment (ICD-10-PCS; principal; 2018-06-25)
DX: F10.230 Alcohol dependence with withdrawal, uncomplicated (principal); F17.210 Nicotine dependence, cigarettes, uncomplicated; F10.24 Alcohol dependence with alcohol-induced mood disorder; F32.9 Major depressive disorder, single episode, unspecified; G47.00 Insomnia, unspecified; I10 Essential (primary) hypertension; E11.9 Type 2 diabetes mellitus without complications; Z79.84 Long term (current) use of oral hypoglycemic drugs; Z91.5 Personal history of self-harm
CPT/HCPCS: 36415; 71046-TC-FY; 74176-TC; 80053; 80307; 82272; 82962; 83690; 85025; 85027; 86593; 93005; 93010; 96365; 96375; 99283-25; J0131; J0475; J0735; Q0162